=== PATIENT | male | born 1950 ===

== ENCOUNTER 2017-09-22 14:33 | Emergency (ER) | payer SELFPAY ==
[~2017-09-22] VITALS: Ht 188 cm; Wt 74.8 kg
[2017-09-22 14:40] VITALS: BP 125/94
--- NOTE | 2017-09-22 14:45 | ED General ---
General Stated Complaint: INGESTED INSECTICIDE Source of Information: Patient Exam Limitations: No Limitations History of Present Illness Date Seen by Provider: Sep 22, 2017 Time Seen by Provider: 14:42 Initial Comments to ER per EMS from home with reports of unintentional inhalation of insecticide..e set off a bug bomb (RAID Fogger) and remained in the house for about 3 minutes with the bug bomb going off. He reports shortness of breath and EMS reported that he was initially wheezy but is no longer wheezing. Severity: Moderate Allergies and Home Medications Patient Home Medication List Home Medication List Reviewed: Yes Review of Systems Constitutional: see HPI EENTM: see HPI Respiratory: see HPI, short of breath Genitourinary: no symptoms reported Musculoskeletal: no symptoms reported Skin: no symptoms reported Psychiatric/Neurological: No Symptoms Reported Past Umxnbhd-Xfmybv-Otdash Hx Patient Social History Recent Foreign Travel: No Contact w/Someone Who Travel: No Physical Exam Vital Signs Capillary Refill : General Appearance: No Apparent Distress, WD/WN, Anxious Eyes: Bilateral Eye Normal Inspection, Bilateral Eye PERRL, Bilateral Eye EOMI HEENT: PERRL/EOMI, TMs Normal Neck: Full Range of Motion, Normal Inspection Respiratory: Normal Breath Sounds, No Accessory Muscle Use, No Respiratory Distress Cardiovascular: Regular Rate, Rhythm, Normal Peripheral Pulses Gastrointestinal: Non Tender, Soft Extremity: Normal Capillary Refill, Normal Inspection Neurologic/Psychiatric: Alert, Oriented x3 Skin: Normal Color, Warm/Dry Progress/Results/Core Measures Suspected Sepsis SIRS Temperature: Pulse: Respiratory Rate: Blood Pressure / Mean: Results/Orders My Orders Orders - RICHI ZABALA APRN Cbc With Automated Diff (09/22/17 14:40) Comprehensive Metabolic Panel (09/22/17 14:40) Ua Culture If Indicated (09/22/17 14:40) Drug Screen Stat (Urine) (09/22/17 14:40) Chest Pa/Lat (2 View) (09/22/17 14:40) [employer] (09/22/17 14:40) Vital Signs/I&O Capillary Refill : Departure Communication (Admissions) patient has the can of fog or with him that supposedly went off at home. however , the tabs preventing the button from being depressed are still attached so this can is still full and the button has never been depressed to release the fog. I questioned him about this and he then states that he is feeling much better suddenly and would like to go home without any additional treatment. He' ll sign a refusal of services form. Impression Primary Impression: Left against medical advice Disposition: 07 AGAINST MEDICAL ADVICE Condition: Against Medical Advice RICHI ZABALA APRN Sep 22, 2017 14:45
== END 2017-09-22 14:50 | disposition left against medical advice (07) ==
LOC: ER 14:37
DX: R06.02 Shortness of breath (principal); Z77.098 Contact with and (suspected) exposure to other hazardous, chiefly nonmedicinal, chemicals
CPT/HCPCS: 99283